=== PATIENT | female | born 1935 | race Caucasian/White ===

== ENCOUNTER 2021-01-03 13:14 | Emergency (ER) | payer BC, MEDICARE ==
[~2021-01-03] VITALS: Ht 165.1 cm; Wt 71.8 kg
--- NOTE | 2021-01-03 13:17 | PHYS DOC ---
General Adult HPI: HPI: Patient is a 85 year old here for evaluation after she fell and hit her head while getting out of the shower. He has a large left forehead laceration, just above her left eyebrow. The injury occurred shortly prior to arrival. She admits that she has a history of frequent syncope episodes. She has seen her physicians for this, and she does not have any underlying cardiac issues or neurologic issues that she is aware of. She reports that she was in the shower, and then she started to feel lightheaded as she was getting out of the shower, and then she fell forward, and she reports that she lost consciousness briefly when she hit her head. She awoke on her and and was able to ambulate to the phone to call EMS to bring her here. She reports that her tetanus is up-to-date. She reports pain at the laceration site only. She denies neck pain or back pain. She denies chest pain, dyspnea, palpitations, nausea vomiting, abdominal pain, numbness, tingling, motor weakness. She lives at home with her son, who helps care for her. She is independent and ambulates on her own usually. In addition, the patient reports about 10 days of nonproductive cough, fatigue and some malaise. She denies fevers or chills. She denies chest pain or dyspnea. She denies hemoptysis. She reports being vaccinated against Covid. She lives with her son, who is not vaccinated against Covid. Review of Systems: Review of Systems: Constitutional: Denies fever or chills. [] Eyes: Denies change in visual acuity. [] HENT: Denies nasal congestion or sore throat. [] Respiratory: Denies cough or shortness of breath. [] Cardiovascular: Denies chest pain or edema. [] GI: Denies abdominal pain, nausea, vomiting, bloody stools or diarrhea. [] : Denies dysuria. [] Musculoskeletal: Denies back pain or joint pain. [] Integument: Left sided forehead laceration Neurologic: Denies headache, focal weakness or sensory changes. Psychiatric: Denies depression or anxiety. [] Heart Score: C/O Chest Pain: No Risk Factors: Risk Factors: DM, Current or recent (<one month) smoker, HTN, HLP, family history of CAD, obesity. Risk Scores: Score 0 - 3: 2.5% MACE over next 6 weeks - Discharge Home Score 4 - 6: 20.3% MACE over next 6 weeks - Admit for Clinical Observation Score 7 - 10: 72.7% MACE over next 6 weeks - Early Invasive Strategies Physical Exam: PE: Constitutional: Well developed, well nourished, no acute distress, non-toxic appearance. [] HENT: She has a large subcutaneous, gaping, mildly oozing laceration of her left forehead, just above her left eyebrow. Measures approximately 6 cm. There is subcutaneous fat exposed. No galea or skull is exposed. No significant cephalohematoma noted. Bilateral external canals are clear. TMs are clear bilaterally. No otorrhea. No hemotympanum. Nares are patent without rhinorrhea or epistaxis. Eyes: PERRL, EOMI, conjunctiva normal, no discharge. [] Neck: Normal range of motion, no tenderness, supple, no midline tenderness or step-offs or deformity. Cardiovascular:Heart rate regular rhythm, +2 radial and posterior tibial pulses bilaterally Lungs & Thorax: Bilateral breath sounds clear to auscultation [] Abdomen: Bowel sounds normal, soft, no tenderness. Skin: Warm, dry, no erythema, no rash. [] Back: No tenderness, no CVA tenderness. No deformity, no evidence of trauma, no step-offs or midline tenderness. Extremities: No tenderness, no cyanosis, no clubbing, ROM intact, no edema. [] Neurologic: Alert and oriented X 3, normal motor function, normal sensory function, no focal deficits noted. Cranial nerves II through XII grossly intact. 5 out of 5 motor strength in all 4 extremities. No pronator drift, no dysmetria, no limb ataxia, speech is clear and fluent. Psychologic: Affect normal, judgement normal, mood normal. She is pleasant and cooperative. EKG: EKG: EKG is interpreted at 1324 Rhythm is sinus Rate is 70 bpm [place] is left Baseline artifact noted No STEMI Radiology/Procedures: Radiology/Procedures: IMAGING REPORT Signed PATIENT: ARNULFO INFANTE ACCOUNT: [id number] : 1935 LOCATION: ER AGE: 85 SEX: F EXAM STATUS: PRE ER ORD. PHYSICIAN: CRAIG,ROMY M DO REASON: cough PROCEDURE: PORTABLE CHEST 1V XR CHEST 1V Clinical History: Reason: cough / Spl. Instructions: / History: Technique: AP view of the chest was obtained at 01/03/2021 1:52 PM. Comparison: None. Findings: The heart is moderately enlarged. The pulmonary vasculature is normal. There is linear opacities in the lower lungs. The pleural margins are clear. Impression: 1. Cardiomegaly. 2. Mild bilateral infiltrates could be discoid atelectasis or early pneumonia. Electronically signed by: Francisco Bright III, MD (01/03/2021 2:06 PM) [facility] DICTATED and SIGNED BY: FRANCISCO BRIGHT III, MD DATE: 01/03/21 [id number] IMAGING REPORT Signed PATIENT: ARNULFO INFANTE ACCOUNT: [id number] : 1935 LOCATION: ER AGE: 85 SEX: F EXAM STATUS: REG ER ORD. PHYSICIAN: ROMY SRINIVASAN DO REASON: fall, head injury PROCEDURE: CT HEAD AND CERVICAL SPINE WO CT Head W/O Contrast: History: Reason: fall, head injury / Spl. Instructions: / History: Comparison: none Axial images were obtained without contrast. There is moderate diffuse atrophy. There is no mass effect, extraaxial fluid collections or hydrocephalus. There is no gross bleed. Minimal, patchy periventricular and subcortical white matter hypoattenuation is seen. There is no focal loss of doyle-white matter distinction to suggest acute ischemia, i.e. stroke. Punctate calcification of the brainstem is likely physiologic. Impression: No acute findings. End impression CT C-Spine without contrast: Clinical History: Reason: fall, head injury / Spl. Instructions: / History: Technique: Axial helical images of the cervical spine were obtained without contrast, axial coronal and sagittal reconstruction was performed. Findings: There is no loss of vertebral body stature. There is no prevertebral soft tissue swelling. The vertebral bodies are well aligned. There is straightening of the normal cervical lordosis which can be positional or could be chronic. The C1-C2 relationship is normal. The visualized osseous structures appear normal. Evaluation of the central canal is limited without contrast. There is multiple posterior disc bulges resulting in flattening of the thecal sac. There is loss of intervertebral disc height and marginal spurring at endplates at C5-C6. There is old diffuse circumferential disc osteophytic ridge results in complete eff acement of CSF around the cord. There does not appear to be gross flattening of the cord. There is marked narrowing of multiple neuroforamen. Impression: Degenerative changes. No acute findings. Clinical correlation suggested. End impression PQRS Compliance Statement: One or more of the following individualized dose reduction techniques were utilized for this examination: 1. Automated exposure control 2. Adjustment of the mA and/or kV according to patient size 3. Use of iterative reconstruction technique Electronically signed by: Francisco Bright III, MD (01/03/2021 2:43 PM) [facility] DICTATED and SIGNED BY: FRANCISCO BRIGHT III, MD DATE: 01/03/21 [id number] Course & Med Decision Making: Course & Med Decision Making Pertinent Labs and Imaging studies reviewed. (See chart for details) The patient declined any pain medication here. She tolerated laceration repair well. Please see accompanying note for laceration repair details. I discussed the findings, differential diagnosis and plan of care with her. She is adamant that she wishes to go home. She has a normal, nonfocal neurologic exam. She expresses that she has had syncopal episodes several times in the past. She will go home with her son, who will be will to stay with her and watch her at home. I gave her very strict return precautions. I told her that she should contact her PCP within the next 24 hours for follow-up. I discussed home care instructions regarding laceration care. She is comfortable with the plan of care and verbalizes understanding of all instructions given. Skip Disclaimer: Skip Disclaimer: This electronic medical record was generated, in whole or in part, using a voice recognition dictation system. Laceration Repair Lac Repair Indication: Left forehead laceration Procedure: The patient was placed in the appropriate position and anesthesia around the left lower forehead laceration, just above the left eyebrow. The area was then cleaned with Betadine and irrigated copiously with sterile saline. The laceration was approximated using 2 layer closure, utilizing a total of 3 5-0 Vicryl subcuticular sutures, as well as a total of 7 5-0 Ethilon simple interrupted skin sutures. The wound area was then dressed with [WOUND COVERING]. Total repaired wound length: 6 cm Other Items: The wound is approximated well, wound edges everted, hemostasis achieved The patient tolerated the procedure well. Complications: none Departure Departure Impression: Primary Impression: Syncope Additional Impressions: Forehead laceration COVID-19 virus infection Disposition: HOME / SELF CARE / HOMELESS Condition: STABLE Patient Instructions: Laceration Care, Adult, Syncope Additional Instructions: You have been tested for or diagnosed with COVID-19. It is an infection caused by a new type of coronavirus. COVID-19 will cause cold-like or mild flu symptoms in most. It can cause more severe symptoms like problems breathing in some. There is no treatment for COVID-19. The body will clear the infection over time. Self-care will help to ease discomfort. Steps to Take: Self-Care Rest as needed. Healthy habits may help you feel better. Steps include: Choose healthy foods including fruits and vegetables. Drink water throughout the day. Get plenty of sleep each night. If you smoke, try to quit. It may ease breathing. Avoid alcohol. Keep Others Healthy The virus can spread to others. Droplets are released every time you sneeze or cough. The droplets can get into the mouth, nose, or eyes of people near you and lead to infection. To lower the chances of spreading COVID-19 to others: Stay at home until your doctor has said it is safe to leave. If you tested positive this will mean staying isolated until both of the following are true: At least 7 days have passed since the start of illness. You are free of fever for at least 72 hours without the use of medicine. During this time: - Avoid public areas, events, or transportation. Do not return to work or school until your doctor has said it is safe to do so. - Call ahead if you need to go to a medical center. Let them know you may have COVID-19. It will help them guide you where to go. They may also ask you to wear a facemask when you come to the office. - If you call for emergency medical services, let them know you may have COVID- 19. While at home: - Try to avoid close contact with others. Stay about 6 feet away. - If possible, spend most of your time in a separate room from others. - Use a face mask if you will be in close contact with others such as sharing a room or vehicle. - Have someone wipe down common surfaces in the home. Use household manager category every day on areas like doorknobs, counters, or sinks. - Cough or sneeze into a tissue. Throw the tissue away right after use. If a tissue is not available, cough or sneeze into your elbow. - Wash your hands often. Wash them after sneezing or coughing. Use soap and water and wash for at least 20 seconds. Alcohol based hand airplane cleaner can be used if soap and water is not available. - Do not prepare food for others. Avoid sharing personal items like forks, spoons, or toothbrushes. - Avoid close contact with pets while you are sick. There is no evidence of the virus passing to pets. This is a safety step until more is known about this virus. Isolation can be frustrating. Social interaction can help. Keep in touch with friends and family through phone and tech options. You can still interact with others in your home, just keep a safe distance of about 6 feet. Follow-up: Your doctors office will check in with you to see if there are any changes in your health. You may be asked to keep track of symptoms to share with them. They will also let you know when you are clear to be in public again. Problems to Look Out For: Contact your doctor if your recovery is not going as you expect. Get emergency care if you have problems such as: - Trouble breathing - Nonstop chest pain or pressure - Changes in awareness, confusion, or problems waking - Lips or face have bluish color - Worsening of symptoms If you think you have an emergency, call for emergency medical services right away. [facility] from [facility] Please keep your wound clean and dry. Return to the ER immediately for any fever of 100.4 or higher, with severe skin swelling, severe redness, yellow or green drainage, severe headache, uncontrolled vomiting, new injury or trauma, weakness or any other concerns. Please stay well-hydrated. Please stand up slowly. Please avoid prolonged standing, avoid heat. You must continue to self isolate/quarantine at home. You must notify the your son that he is also been exposed to you and you have Covid, and he must quarantine for 14 days. He must notify any coworkers or close contacts that you have Covid and he has been exposed. May follow-up in the ER in 5 to 7 days for suture removal. ROMY SRINIVASAN DO Jan 03, 2021 13:17
[2021-01-03 14:07] LABS: BASO % 0 % (0-3); EOS % 0 % (0-3); HEMOGLOBIN 13.6 g/dL (12.0-15.5); LYMPH # 0.4 x10^3/uL (1.0-4.8); LYMPH % 10 % (24-48); MEAN CORPUSCULAR HEMOGLOBIN 31 pg (25-35); MEAN CORPUSCULAR HGB CONC 34 g/dL (31-37); MEAN CORPUSCULAR VOLUME 90 fL (79-100); MONO # 0.2 x10^3/uL (0.0-1.1); MONO % 6 % (0-9); NEUT # 3.6 x10^3/uL (1.8-7.7); NEUT % 84 % (31-73); PLATELET COUNT 128 x10^3/uL (140-400); RED BLOOD COUNT 4.43 x10^6/uL (3.50-5.40); RED CELL DISTRIBUTION WIDTH 12.7 % (11.5-14.5); WHITE BLOOD COUNT 4.3 x10^3/uL (4.0-11.0)
--- NOTE | 2021-01-03 14:09 | RAD ---
XR CHEST 1V Clinical History: Reason: cough / Spl. Instructions: / History: Technique: AP view of the chest was obtained at 01/03/2021 1:52 PM. Comparison: None. Findings: The heart is moderately enlarged. The pulmonary vasculature is normal. There is linear opacities in t he lower lungs. The pleural margins are clear. Impression: 1. Cardiomegaly. 2. Mild bilateral infiltrates could be discoid atelectasis or early pneumonia. Electronically signed by: Lyndon Flower III, MD (01/03/2021 2:06 PM) [facility]
[2021-01-03 14:19] LABS: CALCIUM 8.7 mg/dL (8.5-10.1); CREATININE 0.9 mg/dL (0.6-1.0); GFR 59.2
[2021-01-03 14:23] LABS: PHOSPHORUS 2.9 mg/dL (2.6-4.7)
--- NOTE | 2021-01-03 14:46 | RAD ---
CT Head W/O Contrast: History: Reason: fall, head injury / Spl. Instructions: / History: Comparison: none Axial images were obtained without contrast. There is moderate diffuse atrophy. There is no mass effect, extraaxial fluid collections or hydrocep halus. There is no gross bleed. Minimal, patchy periventricular and subcortical white matter hypoatt enuation is seen. There is no focal loss of doyle-white matter distinction to suggest acute ischemia, i.e. stroke. Punctate calcification of the brainstem is likely physiologic. Impression: No acute findings. End impression CT C-Spine without contrast: Clinical History: Reason: fall, head injury / Spl. Instructions: / History: Technique: Axial helical images of the cervical spine were obtained without contrast, axial coronal and sagittal reconstruction was performed. Findings: There is no loss of vertebral body stature. There is no prevertebral soft tissue swelling. The vert ebral bodies are well aligned. There is straightening of the normal cervical lordosis which can be p ositional or could be chronic. The C1-C2 relationship is normal. The visualized osseous structures ap pear normal. Evaluation of the central canal is limited without contrast. There is multiple posterio r disc bulges resulting in flattening of the thecal sac. There is loss of intervertebral disc height and marginal spurring at endplates at C5-C6. There is old diffuse circumferential disc osteophytic ri dge results in complete effacement of CSF around the cord. There does not appear to be gross flatteni ng of the cord. There is marked narrowing of multiple neuroforamen. Impression: Degenerative changes. No acute findings. Clinical correlation suggested. End impression PQRS Compliance Statement: One or more of the following individualized dose reduction techniques were utilized for this examinat ion: 1. Automated exposure control 2. Adjustment of the mA and/or kV according to patient size 3. Use of iterative reconstruction technique Electronically signed by: Lyndon Flower III, MD (01/03/2021 2:43 PM) [facility]
[2021-01-03] MEDS ORDERED: LIDOCAINE 1%/EPI 1:100,000 20 ML VIAL. ONE (15:01)
[2021-01-03 17:05] VITALS: BP 198/91
== END 2021-01-03 16:30 | disposition home or self-care (01) ==
LOC: ER 13:14
DX: S01.81XA Laceration without foreign body of other part of head, initial encounter (principal); U07.1 COVID-19; R55 Syncope and collapse; W18.09XA Striking against other object with subsequent fall, initial encounter; Y93.89 Activity, other specified; Y92.89 Other specified places as the place of occurrence of the external cause; Y99.8 Other external cause status
CPT/HCPCS: 12053; 36415; 70450; 71045; 72125; 80048; 83735; 84100; 84484; 85025; 87426; 93005; 99285